=== PATIENT | male | born 1980 | race Caucasian/White ===

== ENCOUNTER 2020-07-19 12:57 | Emergency (ER) | payer OTHER | END 2020-07-19 14:44 | disposition home or self-care (01) | LOC: ER1 12:57 | DX: M54.42 Lumbago with sciatica, left side (principal); I10 Essential (primary) hypertension; F17.200 Nicotine dependence, unspecified, uncomplicated | CPT/HCPCS: 96372; 99283; J1100; J1885 ==

== ENCOUNTER 2021-09-17 08:41 | Emergency (ER) | payer SELFPAY | END 2021-09-17 10:05 | disposition home or self-care (01) | LOC: ER1 08:41 | DX: A54.01 Gonococcal cystitis and urethritis, unspecified (principal); N45.3 Epididymo-orchitis; I10 Essential (primary) hypertension; Z20.2 Contact with and (suspected) exposure to infections with a predominantly sexual mode of transmission | CPT/HCPCS: 96372; 99283; J0696 ==

== ENCOUNTER 2022-03-04 17:25 | Emergency (ER) | payer SELFPAY | END 2022-03-04 18:10 | disposition left against medical advice (07) | LOC: ER1 17:25 | DX: Z53.21 Procedure and treatment not carried out due to patient leaving prior to being seen by health care provider (principal) ==